=== PATIENT | female | born 1945 | race Caucasian/White ===

== ENCOUNTER → 2017-05-03 | Outpatient (CLI) | payer MEDICARE ==
--- NOTE | 2017-05-03 14:32 | MM ---
Reason for exam: follow-up at short interval from prior study. Last mammogram was performed 6 months ago. History: Patient is postmenopausal and is nulliparous. Benign cyst aspiration of the right breast, 1994. Physical Findings: Nurse did not find any significant physical abnormalities on exam. MG 3D Diag Mammo W/Cad LT CC and MLO view(s) were taken of the left breast. Prior study comparison: October 19, 2016, bilateral MG 3d diag mammo w/cad [facility]. August 19, 2008, bilateral digital screening mammogram. There are scattered fibroglandular densities. There is chronic nodularity in the left breast. While the 2-3 o'clock subareolar nodule appear more dense, it continues to measure 1cm and is circumscribed. Additional 6 month follow up recommended. These results were verbally communicated with the patient and result sheet given to the patient on 05/03/17. ASSESSMENT: Probably benign, BI-RAD 3 RECOMMENDATION: Follow-up diagnostic left breast mammogram in 6 months. Patient will be due for annual exam of the right breast at that time. Back on schedule for September 2017. RINA
== END | disposition home or self-care (01) ==
LOC: RADMAMWWP 12:50
PROVIDERS: ATTEND Internal Medicine
DX: R92.8 Other abnormal and inconclusive findings on diagnostic imaging of breast (principal)
CPT/HCPCS: G0206; G0279

== ENCOUNTER → 2021-12-30 | Outpatient (CLI) | payer MEDICARE ==
--- NOTE | 2021-12-30 12:55 | US ---
EXAMINATION TYPE: US kidneys/renal and bladder DATE OF EXAM: 12/30/2021 COMPARISON: NONE CLINICAL HISTORY: R31.9 HEMATURIA, UNSPECIFIED. microscopic hematuria, was on antibiotics, rt flank p ain EXAM MEASUREMENTS: Right Kidney: 9.9 x 4.4 x 4.7 cm Left Kidney: 10.9 x 5.4 x 5.4 cm Right Kidney: Hypoechoic area = 1.8 x 1.1cm Left Kidney: Hypoechoic area = 2.1 x 1.9cm Bladder: not fully distended, wnl No hydronephrosis or nephrolithiasis. Bladder limited by incomplete distention. IMPRESSION: 1. No hydronephrosis or nephrolithiasis. The hypoechoic nodules within the kidneys too small to lalo cterize but statistically most likely related to cysts.
== END | disposition home or self-care (01) ==
LOC: RADUSWWP 11:55
PROVIDERS: ATTEND Internal Medicine
DX: N28.1 Cyst of kidney, acquired (principal)
CPT/HCPCS: 76770

== ENCOUNTER 2022-10-10 13:28 | Emergency (ER) | payer MEDICARE ==
[2022-10-10 13:34] VITALS: TEMP 97.9
[2022-10-10 15:11] LABS: Basophils % (A) 0 %; Eosinophils # (A) 0.1 k/uL (0-0.7); Eosinophils % (A) 2 %; HCT 31.7 % (34.0-46.0); HGB 10.7 gm/dL (11.4-16.0); Lymphocytes # (A) 1.6 k/uL (1.0-4.8); Lymphocytes % (A) 25 %; MCH 30.6 pg (25.0-35.0); MCHC 33.8 g/dL (31.0-37.0); MCV 90.6 fL (80.0-100.0); Mean Platelet Volume 9.4; Monocytes # (A) 0.3 k/uL (0-1.0); Monocytes % (A) 5 %; Neutrophils # (A) 4.2 k/uL (1.3-7.7); Neutrophils % (A) 66 %; Platelet Count 204 k/uL (150-450); RDW 13.7 % (11.5-15.5); WBC 6.3 k/uL (3.8-10.6)
[2022-10-10 16:04] VITALS: RESP 16
[2022-10-10 16:46] LABS: Albumin 3.7 g/dL (3.5-5.0); Potassium 4.1 mmol/L (3.5-5.1); Total Bilirubin 0.3 mg/dL (0.2-1.3); Total Protein 6.3 g/dL (6.3-8.2)
--- NOTE | 2022-10-10 17:27 | ED ---
General Adult HPI - General Chief complaint: GI Bleed Stated complaint: GI Bleed Time Seen by Provider: 10/10/22 13:40 Source: patient Mode of arrival: wheelchair Limitations: no limitations - History of Present Illness Initial comments: This is a 77-year-old female that presents emergency department for a GI bleed. The patient stated that she had several episodes of bright red blood in the toilet bowl earlier yesterday and a minor episode today but did state that the stool has been returning to normal. The patient stated that she did not have any lightheadedness or dizziness but wanted to come to the emergency department for evaluation. The patient did state that she had previous hemorrhoids in the past however stated that she didn't have any acute pain in the rectal area. The patient remained stable and denied any other acute pain or complaints at this time. - Related Data Home Medications Medication Instructions Recorded Confirmed Aspirin EC [Ecotrin Low Dose] 81 mg PO DAILY@1200 10/10/22 10/10/22 Levothyroxine Sodium [Synthroid] 88 mcg PO AC-BRKFST 10/10/22 10/10/22 Linaclotide [Linzess] 145 mcg PO DAILY PRN 10/10/22 10/10/22 Multivitamins, Thera [Multivitamin 1 tab PO DAILY 10/10/22 10/10/22 (formulary)] lisinopriL [Zestril] 10 mg PO DAILY@1200 10/10/22 10/10/22 Allergies Allergy/AdvReac Type Severity Reaction Status Date / Time No Known Allergies Allergy Verified 10/10/22 15:31 Review of Systems ROS Statement: Those systems with pertinent positive or pertinent negative responses have been documented in the HPI. ROS Other: All systems not noted in ROS Statement are negative. Past Medical History Past Medical History: Hypertension History of Any Multi-Drug Resistant Organisms: None Reported Past Surgical History: Adenoidectomy, Cholecystectomy, Tonsillectomy, Tubal Ligation Additional Past Surgical History / Comment(s): thyroidectomy Past Psychological History: No Psychological Hx Reported Smoking Status: Former smoker Past Alcohol Use History: None Reported Past Drug Use History: None Reported General Exam Limitations: no limitations General appearance: alert, in no apparent distress Head exam: Present: atraumatic, normocephalic Eye exam: Present: normal appearance, PERRL Pupils: Present: normal accommodation ENT exam: Present: normal exam, normal oropharynx Neck exam: Present: normal inspection, full ROM Respiratory exam: Present: normal lung sounds bilaterally Cardiovascular Exam: Present: regular rate, normal rhythm, normal heart sounds GI/Abdominal exam: Present: soft, normal bowel sounds Rectal exam: Present: normal inspection, normal rectal tone, heme (+) stool Extremities exam: Present: normal inspection, full ROM Back exam: Present: normal inspection, full ROM Neurological exam: Present: alert, oriented X3, CN II-XII intact Psychiatric exam: Present: normal affect, normal mood Skin exam: Present: warm, dry Course Vital Signs 10/10/22 10/10/22 10/10/22 13:31 15:41 16:04 Temperature 97.9 F Pulse Rate 73 78 68 Respiratory 16 20 16 Rate Blood Pressure 124/80 142/71 134/68 O2 Sat by Pulse 95 96 98 Oximetry 10/10/22 17:45 Temperature Pulse Rate 78 Respiratory 16 Rate Blood Pressure 140/60 O2 Sat by Pulse 98 Oximetry Medical Decision Making - Medical Decision Making The patient was seen and evaluated emergency department. On evaluation, the patient was resting in bed without any acute distress. The patient did not complain of any pain and vital signs were stable on evaluation. The due to the nature the patient's complaints, laboratory workup was obtained and a rectal exam was performed. Laboratory workup was within normal limits and hemoglobin was stable. The rectal exam did not show any acute obvious blood but did have occult positive stool. The patient continued to remain stable with normal vital signs and on reevaluation, the patient was anxious and just wanted to leave the emergency department. The patient stated that she did not want to stay for an evaluation however was told that she remained stable and could be discharged [facility]. The patient was advised to return back to the emergency department if she any worsening symptoms including any lightheadedness, dizziness as well as any large rectal bleeding that was persistent. The patient was agreeable to this and all of her questions were answered. The patient was discharged home in stable condition. - Lab Data Result diagrams: 10/10/22 14:12 10/10/22 15:55 Lab Results 10/10/22 10/10/22 10/10/22 Range/Units 14:08 14:12 14:12 WBC 6.3 (3.8-10.6) k/uL RBC 3.50 L (3.80-5.40) m/uL Hgb 10.7 L (11.4-16.0) gm/dL Hct 31.7 L (34.0-46.0) % MCV 90.6 (80.0-100.0) fL MCH 30.6 (25.0-35.0) pg MCHC 33.8 (31.0-37.0) g/dL RDW 13.7 (11.5-15.5) % Plt Count 204 (150-450) k/uL MPV 9.4 Neutrophils % 66 % Lymphocytes % 25 % Monocytes % 5 % Eosinophils % 2 % Basophils % 0 % Neutrophils # 4.2 (1.3-7.7) k/uL Lymphocytes # 1.6 (1.0-4.8) k/uL Monocytes # 0.3 (0-1.0) k/uL Eosinophils # 0.1 (0-0.7) k/uL Basophils # 0.0 (0-0.2) k/uL Sodium (137-145) mmol/L Potassium (3.5-5.1) mmol/L Chloride (98-107) mmol/L Carbon Dioxide (22-30) mmol/L Anion Gap mmol/L BUN (7-17) mg/dL Creatinine (0.52-1.04) mg/dL Est GFR (CKD-EPI)AfAm (>60 ml/min/1.73 sqM) Est GFR (CKD-EPI)NonAf (>60 ml/min/1.73 sqM) Glucose (74-99) mg/dL Calcium (8.4-10.2) mg/dL Total Bilirubin (0.2-1.3) mg/dL AST (14-36) U/L ALT (4-34) U/L Alkaline Phosphatase (38-126) U/L Total Protein (6.3-8.2) g/dL Albumin (3.5-5.0) g/dL Stool Occult Blood Positive H (Negative) Blood Type Blood Type Confirm A Positive Blood Type Recheck Bld Type Recheck Status Antibody Screen Spec Expiration Date 10/10/22 10/10/22 Range/Units 14:12 15:55 WBC (3.8-10.6) k/uL RBC (3.80-5.40) m/uL Hgb (11.4-16.0) gm/dL Hct (34.0-46.0) % MCV (80.0-100.0) fL MCH (25.0-35.0) pg MCHC (31.0-37.0) g/dL RDW (11.5-15.5) % Plt Count (150-450) k/uL MPV Neutrophils % % Lymphocytes % % Monocytes % % Eosinophils % % Basophils % % Neutrophils # (1.3-7.7) k/uL Lymphocytes # (1.0-4.8) k/uL Monocytes # (0-1.0) k/uL Eosinophils # (0-0.7) k/uL Basophils # (0-0.2) k/uL Sodium 139 (137-145) mmol/L Potassium 4.1 (3.5-5.1) mmol/L Chloride 107 (98-107) mmol/L Carbon Dioxide 26 (22-30) mmol/L Anion Gap 6 mmol/L BUN 16 (7-17) mg/dL Creatinine 0.76 (0.52-1.04) mg/dL Est GFR (CKD-EPI)AfAm 87 (>60 ml/min/1.73 sqM) Est GFR (CKD-EPI)NonAf 75 (>60 ml/min/1.73 sqM) Glucose 103 H (74-99) mg/dL Calcium 9.0 (8.4-10.2) mg/dL Total Bilirubin 0.3 (0.2-1.3) mg/dL AST 19 (14-36) U/L ALT 18 (4-34) U/L Alkaline Phosphatase 116 (38-126) U/L Total Protein 6.3 (6.3-8.2) g/dL Albumin 3.7 (3.5-5.0) g/dL Stool Occult Blood (Negative) Blood Type A Positive Blood Type Confirm Blood Type Recheck No Previous Record Bld Type Recheck Status CABO Indicated Antibody Screen NEGATIVE Spec Expiration Date 10/13/20222311 Disposition Clinical Impression: GIB (gastrointestinal bleeding) Disposition: HOME SELF-CARE Condition: Stable Instructions (If sedation given, give patient instructions): Gastrointestinal Bleeding (ED) Is patient prescribed a controlled substance at d/c from ED?: No Referrals: Janki Simons MD [Primary Care Provider] - 1-2 days Radha Hodges MD [STAFF PHYSICIAN] - 1-2 days (Call for follow-up appointment) Time of Disposition: 17:00
[2022-10-10 17:46] VITALS: BP 140/60; PULSE 78
== END 2022-10-10 17:46 | disposition home or self-care (01) ==
LOC: EC 13:28
DX: K92.2 Gastrointestinal hemorrhage, unspecified (principal); I10 Essential (primary) hypertension; Z87.891 Personal history of nicotine dependence; Z79.82 Long term (current) use of aspirin; Z79.899 Other long term (current) drug therapy
CPT/HCPCS: 36415; 80053; 82272; 85025; 86850; 86900; 86901; 99285

== ENCOUNTER → 2022-11-03 | Outpatient (CLI) | payer MEDICARE ==
--- NOTE | 2022-11-05 16:10 | MM ---
Reason for Exam: Screening (asymptomatic). Last mammogram was performed 6 year(s) and 1 month(s) ago. Patient History: Menarche at age 10. Patient has no children. Postmenopausal. 1994, Benign Cyst Aspiration on the right side. Risk Values: Ana Maria 5 year model risk: 1.9%. NCI Lifetime model risk: 3.1%. Prior Study Comparison: 08/19/2008 Bilateral Screening Mammogram, [facility]. 10/19/2016 Bilateral Diagnostic Mammogram, [facility]. 10/19/2016 Left Diagnostic Ultrasound, [facility]. 05/03/2017 Left Diagnostic Mammogram, [facility]. Tissue Density: There are scattered fibroglandular densities. poor HISTORIAN....UNSURE IF ANY MAMMOGRAM ELSEWHERE SINCE 2017. Findings: Analyzed By CAD. Chronic nodularity on both sides. Some fluctuating nodularity in the medial subareolar left breast on the CC view. Likely underlying cyst. Short interval follow-up recommended to reassess. Microclip lateral anterior left breast from prior biopsy. Otherwise, no significant change. Overall Assessment: Probably benign, BI-RAD 3 Management: Diagnostic Mammogram of the left breast in 6 months. 1. Patient should continue monthly self breast exams. 2. A clinical breast exam by your physician is recommended on an annual basis. 3. This exam should not preclude additional follow-up of suspicious palpable abnormalities. Electronically signed and approved by: Stephenie Dorman M.D. Radiologist
== END | disposition home or self-care (01) ==
LOC: RADMAMWWP 11:25
PROVIDERS: ATTEND Internal Medicine
DX: Z12.31 Encounter for screening mammogram for malignant neoplasm of breast (principal); Z78.0 Asymptomatic menopausal state
CPT/HCPCS: 77063; 77067

== ENCOUNTER → 2023-11-17 | Outpatient (CLI) | payer MEDICARE ==
--- NOTE | 2023-11-17 13:32 | MM ---
Reason for Exam: Additional evaluation requested from prior study. Last screening mammogram was performed 12 month(s) ago. Patient History: Menarche at age 10. Patient has no children. Postmenopausal. 1994, Benign Cyst Aspiration on the right side. Risk Values: Ana Maria 5 year model risk: 1.8%. NCI Lifetime model risk: 2.8%. Prior Study Comparison: 10/19/2016 Bilateral Diagnostic Mammogram, [facility]. 05/03/2017 Left Diagnostic Mammogram, [facility]. 11/03/2022 Bilateral MG 3D screening mammo w/cad, [facility]. Tissue Density: There are scattered fibroglandular densities. Findings: Analyzed By CAD. Nodularity in the left breast remains unchanged. Lateral subareolar asymmetric density in the left breast contains a microclip related to prior biopsy. However, the area. Slightly more defined. Suspect technical differences. As the area was previously biopsied, precautionary 6 month follow-up is recommended. Otherwise, no significant change. Overall Assessment: Probably benign, BI-RAD 3 Management: Diagnostic Mammogram of the left breast in 6 months. Results were given to the patient verbally at the time of exam. Patient should continue monthly self-breast exams. A clinical breast exam by your physician is recommended on an annual basis. This exam should not preclude additional follow-up of suspicious palpable abnormalities. Note on Ana Maria scores and lifetime risk: 1. A Ana Maria score greater than 3% is considered moderate risk. If this is the case, consider specialist referral to assess eligibility for a risk reducing agent. 2. If overall lifetime risk for the development of breast cancer is 20% or higher, the patient may qualify for future screening with alternating mammogram and breast MRI. Electronically signed and approved by: Stephenie Dorman M.D. Radiologist
== END | disposition home or self-care (01) ==
LOC: RADMAMWWP 12:50
PROVIDERS: ATTEND Family Medicine
DX: R92.323 Mammographic fibroglandular density, bilateral breasts (principal); Z78.0 Asymptomatic menopausal state
CPT/HCPCS: 77066; G0279; 77062

== ENCOUNTER → 2023-12-19 | Outpatient (CLI) | payer MEDICARE ==
--- NOTE | 2023-12-19 23:23 | US ---
EXAMINATION TYPE: US kidneys/renal and bladder DATE OF EXAM: 12/19/2023 COMPARISON: CT 12/28/2022 US 12/30/2021 CLINICAL INDICATION: Female, 78 years old with history of R10.9 RIGHT FLANK PAIN; UNSPECIFIED ABDOMIN AL PAIN; UTI with bilateral flank pain x 5 years EXAM MEASUREMENTS: Right Kidney: 9.8 x 4.8 x 5.1 cm Left Kidney: 11.0 x 6.1 x 5.8 cm Post Void Residual Volume: NA mL Right Kidney: wnl Left Kidney: Cyst = 2.8 x 2.3 x 2.2 cm Bladder: Possible superior urinary bladder Diverticula = 2.5 x 1.6 x 2.7 cm Bilateral Jets seen: Yes Normal Post Void Residual: NA IMPRESSION: 1. Left renal cyst. 2. Urinary bladder diverticulum may be present superior to the urinary bladder
== END | disposition home or self-care (01) ==
LOC: RADUSWWP 15:51
PROVIDERS: ATTEND Family Medicine
DX: N28.1 Cyst of kidney, acquired (principal); N32.3 Diverticulum of bladder
CPT/HCPCS: 76770

== ENCOUNTER → 2024-05-21 | Outpatient (CLI) | payer MEDICARE ==
--- NOTE | 2024-05-21 13:21 | MM ---
Reason for Exam: Follow-up at short interval from prior study. Last screening mammogram was performed 6 month(s) ago. Patient History: Menarche at age 10. Patient has no children. Postmenopausal. 1994, Benign Cyst Aspiration on the right side. Risk Values: Ana Maria 5 year model risk: 1.8%. NCI Lifetime model risk: 2.8%. Prior Study Comparison: 05/03/2017 Left Diagnostic Mammogram, [facility]. 11/03/2022 Bilateral MG 3D screening mammo w/cad, [facility]. 11/17/2023 Bilateral MG 3D diag mammo w/cad [facility], [facility]. Tissue Density: Left: There are scattered areas of fibroglandular density. Findings: Analyzed By CAD. There is a new 7 to 8 mm spiculated nodule upper outer quadrant left breast 7.4 cm from the nipple. Previously sampled mass left breast is stable. No suspicious microcalcifications. Overall Assessment: Incomplete: need additional imaging evaluation, BI-RAD 0 Management: Diagnostic Breast Ultrasound of the left breast. . Results were given to the patient verbally at the time of exam. Patient should continue monthly self-breast exams. A clinical breast exam by your physician is recommended on an annual basis. This exam should not preclude additional follow-up of suspicious palpable abnormalities. Note on Ana Maria scores and lifetime risk: 1. A Ana Maria score greater than 3% is considered moderate risk. If this is the case, consider specialist referral to assess eligibility for a risk reducing agent. 2. If overall lifetime risk for the development of breast cancer is 20% or higher, the patient may qualify for future screening with alternating mammogram and breast MRI. Electronically signed and approved by: Héctor Soto M.D. Radiologis
--- NOTE | 2024-05-21 13:37 | USB ---
Reason for Exam: Additional evaluation requested from prior study. Patient History: Menarche at age 10. Patient has no children. Postmenopausal. 1994, Benign Cyst Aspiration on the right side. Risk Values: Ana Maria 5 year model risk: 1.8%. NCI Lifetime model risk: 2.8%. Technique: Method: Targeted. Doppler: Color. Patient Position: Supine. Prior Study Comparison: 05/03/2017 Left Diagnostic Mammogram, [facility]. 11/03/2022 Bilateral MG 3D screening mammo w/cad, [facility]. 11/17/2023 Bilateral MG 3D diag mammo w/cad [facility], [facility]. Findings: The upper outer quadrant of the left breast, the axilla of the left breast and the retroareolar of the left breast were scanned. There is a small spiculated mass noted at the left 1:00 position 7 cm from the nipple measuring 9 x 7 mm sonographically. There is also a prominent lymph node within the left axilla measuring 2.1 x 1.8 cm with cortical thickening of 5 mm. Biopsy of both sites is recommended sonographically. Overall Assessment: Highly suggestive of malignancy, BI-RAD 5 Management: Ultrasound Core Biopsy of the left breast. A clinical breast exam by your physician is recommended on an annual basis and results should be correlated with mammographic findings. This exam should not preclude additional follow-up of suspicious palpable abnormalities. Results were given to the patient verbally at the time of exam. Electronically signed and approved by: Héctor Soto M.D. Radiologis
== END | disposition home or self-care (01) ==
LOC: RADMAMWWP 12:45
PROVIDERS: ATTEND Family Medicine
DX: R92.322 Mammographic fibroglandular density, left breast (principal); R92.8 Other abnormal and inconclusive findings on diagnostic imaging of breast; Z78.0 Asymptomatic menopausal state
CPT/HCPCS: 77065; 76642; G0279; 77061

== ENCOUNTER → 2024-06-06 | Day surgery (SDC) | payer MEDICARE ==
--- NOTE | 2024-07-03 11:39 | MM ---
Reason for Exam: Post Procedure Mammogram. Last screening mammogram was performed 7 month(s) ago. Patient History: Menarche at age 10. Patient has no children. Postmenopausal. 1994, Benign Cyst Aspiration on the right side. Risk Values: Ana Maria 5 year model risk: 1.8%. NCI Lifetime model risk: 2.6%. Prior Study Comparison: 11/03/2022 Bilateral MG 3D screening mammo w/cad, [facility]. 11/17/2023 Bilateral MG 3D diag mammo w/cad [facility], [facility]. 05/21/2024 Left US breast limited LT, [facility]. 05/21/2024 Left MG 3D diag mammo w/cad LT, [facility]. Tissue Density: Left: There are scattered areas of fibroglandular density. Pathology Description: Location: 1 o'clock. Marker Left Behind. Needle Type: Mammotome Cores: 6 Gauge: 13 The procedure of ultrasound guided core biopsy was explained to the patient. Benefits, alternatives, and risks were discussed. An informed consent was then obtained. A timeout was performed. The patient was placed in supine positioning for imaging and for the procedure. The overlying skin was prepped and draped in usual sterile fashion. Lidocaine was used as anesthetic into the skin and subcutaneous tissue up to area of concern in the left breast. A small skin roverto was made with surgical scalpel. Under ultrasound guidance, a 12-gauge vacuum assisted biopsy gun device was used to obtain 6 core samples. A biopsy clip was left in lesion. Hydromark wing clip core marker was placed. No suspicious axillary lymphadenopathy with thickened cortex is identified during this exam. Axillary biopsy was not performed. The patient tolerated the procedure well without any immediate complication. The patient was kept in the radiology department for short stay after the procedure and then discharged home in stable condition. Postprocedure mammogram: The patient was transferred to mammography for physician ordered post procedure mammogram for clip placement verification. Mammography films are unavailable during PACS downtime. Impression: Successful ultrasound guided core biopsy of area of concern in the left breast, full pathology results to follow. Recommendations: 1. Recommendations are pending pathology results. Pathology Results: Result: Malignant, Invasive ductal carcinoma. Pathology and radiology were reviewed. Findings are concordant. LEFT BREAST, 1:00, ULTRASOUND GUIDED CORE BIOPSY: Invasive ductal carcinoma, preliminarily Grade 2, with focal high grade DCIS and microcalcification (see Surgical Pathology Cancer Case Summary and comment). Overall Assessment: Malignant Assessment: MG diagnostic mammo LT wo CAD. - Left: Known biopsy proven malignancy, BI-RAD 6. Management: Surgical Consultation of the left breast. Electronically signed and approved by: Omid Kruger D.O. Radiologis
== END ==
LOC: RADUSWWP 12:00
PROVIDERS: ATTEND Family Medicine
DX: R92.8 Other abnormal and inconclusive findings on diagnostic imaging of breast (principal)
CPT/HCPCS: 77065

== ENCOUNTER 2024-07-29 06:43 | Day surgery (SDC) | payer MEDICARE ==
[2024-07-29] MEDS ORDERED: LIDOCAINE 1% (10MG/ML) FOR IV START INTRADERMA PRN (07:15)
[2024-07-29] MEDS ORDERED: HYDROmorphone 0.5 MG/0.5 ML SYRINGE IVP PRN (07:15)
[2024-07-29] MEDS ORDERED: LACTATED RINGERS 1,000 ML IV SCH (07:15)
[2024-07-29] MEDS ORDERED: ONDANSETRON 4 MG/2 ML VIAL IVP PRN (07:15)
[2024-07-29 07:36] LABS: Glucose,Whole Blood 102 mg/dL (70-110)
[2024-07-29] MEDS: ACETAMINOPHEN TAB 500 MG TAB PO PRN (07:48)
[2024-07-29] MEDS: ALPRAZolam 0.25 MG TAB PO STA (07:49)
--- NOTE | 2024-07-29 09:02 | P.HPADDEND ---
H&P Addendum H&P Addendum Date: 07/29/24 Patient comes in today for left breast lumpectomy. I spoke with radiology this morning regarding her case. I asked him to review the previous axillary ultrasound. On the patient's first ultrasound there was a lymph node there to that appeared slightly suspicious with a thickened cortex. When the patient came in for her ultrasound core biopsy of the left breast lesion and the left axillary lymph node the lymph node was thought to be benign in appearance and no biopsy took place. When I spoke to the radiologist on duty today and had him look at the films he thought he probably would still have recommended axillary lymph node sampling. I discussed this with the patient at length. Patient stat es she has had some intermittent pain in the left axilla dating back 10 years or more. Initially she was requesting that we just remove this lymph node. I examined the patient down in the ultrasound suite. The location for her pain does not totally match with the mildly enlarged lymph node. We do not have radiotracer to proceed with sentinel lymph node biopsy in house at this time. I do think the best option is to do an ultrasound core biopsy of this mildly suspicious lymph node. If this is negative would not recommend any further axillary intervention unless patient has significant ongoing discomfort there. Patient is agreeable with this plan. Will proceed with left breast wire localization lumpectomy when the patient comes back up from radiology.
--- NOTE | 2024-07-29 09:03 | P.NAPBC ---
NAPBC Queries - NAPBC Queries Was patient's case review presented at [facility] tumor board? If no, comment.: No Was patient's pathology reviewed at [facility]? If no, comment.: Yes Was breast conservation surgery offered? If no, comment.: Yes Was sentinel node biopsy offered? If no, comment.: Yes Was diagnosis confirmed by percutaneous core biopsy? If no, comment.: Yes Is patient mastectomy patient?: No Was a preop referral to reconstructive surgeon offered?: Yes Clinical Stage: 1
[2024-07-29] MEDS: LIDOCAINE 1% INJ 10MG/ML (20 ML MDV) SQ ONE (09:12)
[2024-07-29] MEDS: ONDANSETRON 4 MG/2 ML VIAL IVP ONE (09:57)
[2024-07-29] MEDS: DEXAMETHASONE SOD PHOSPHATE 4 MG/ML 1 ML VIAL IV ONE (09:57)
[2024-07-29] MEDS: HEPARIN SODIUM,PORCINE 5,000 UNIT/ML 1 ML VIAL SQ PRN (10:00)
[2024-07-29] MEDS: IV FLUID CONTINUATION 1,000 ML IV ONE (10:06)
[2024-07-29] MEDS ORDERED: ePHEDrine 50 MG/ML 1 ML VIAL ONE (10:07)
[2024-07-29] MEDS ORDERED: PROPOFOL 10 MG/ML 20 ML VIAL IV ONE (10:07)
[2024-07-29] MEDS ORDERED: fentaNYL (PF) 50 MCG/ML 2 ML AMP ONE (10:07)
[2024-07-29] MEDS ORDERED: LIDOCAINE 1% INJ 10MG/ML (20 ML MDV) ONE (10:07)
[2024-07-29] MEDS: BUPIVACAINE (PF) 0.25% 30 ML VIAL SQ ONE ×2 (10:40)
[2024-07-29 11:14] VITALS: TEMP 97.4
[2024-07-29] MEDS ORDERED: MELOXICAM 7.5 MG TAB PO SCH (11:15)
--- NOTE | 2024-07-29 11:20 | P.OP ---
Date of Procedure: 07/29/24 Procedure(s) Performed: PREOPERATIVE DIAGNOSIS: Left breast cancer POSTOPERATIVE DIAGNOSIS: Same PROCEDURE: Left breast wire localization lumpectomy SURGEON: Smita EBL: 10 cc ANESTHESIA: General COMPLICATIONS: None OPERATIVE PROCEDURE: Patient was placed on the operating room table in the supine position. Patient was placed under general anesthesia. The breast was prepped and draped in usual sterile fashion. The wire entrance site was then addressed. This was present at the 2-3:00 location. A curvilinear incision was made adjacent to the wire entrance site. I followed the wire down into the breast tissue. An adequate lumpectomy specimen then took place around the wire. Margins of 1.5-2 cm worth attempted to be achieved. The specimen was then painted the appropriate 6 colors. Clips were used to identify the lumpectomy cavity. The clip was confirmed to be within the lumpectomy specimen by radiology. The subcutaneous tissues were closed using 3-0 Vicryl sutures. The skin was closed using a running 4-0 Monocryl stitch. Skin glue was then applied. DISPOSITION: Stable to recovery room
[2024-07-29] MEDS ORDERED: ACETAMINOPHEN TAB 325 MG TAB PO SCH (12:00)
--- NOTE | 2024-07-29 12:34 | USB ---
EXAMINATION TYPE: US breast localization LT DATE OF EXAM: 07/29/2024 9:42 AM COMPARISON: NONE HISTORY: Invasive ductal carcinoma Informed consent was obtained and all the patient's questions were answered. The lesion in question was localized sonographically. The standard sterile technique was utilized, as well as appropriate lo liang anesthesia with 1% Lidocaine. Localization needle followed by placement of a guidewire was perfor med under sonographic guidance. Verification images demonstrate appropriate deployment of the guidewi re. The patient tolerated the procedure well and left the department in stable condition. Specimen radiograph demonstrates the lesion, clip and guidewire in question to reside within the spec imen. IMPRESSION: Successful needle localization and open biopsy left breast with pathology results pending . [facility], , 07/29/2024 12:31 PM
[2024-07-29 12:51] VITALS: BP 155/81; PULSE 75; RESP 18
[2024-07-29] MEDS ORDERED: traMADol 50 MG TAB PO SCH (13:00)
--- NOTE | 2024-08-05 09:21 | MM ---
Pathology Description: Location: 1 o'clock. Needle Type: 5 cm [place] Informed consent was obtained and all the patient's questions were answered. The lesion in question was localized sonographically. The standard sterile technique was utilized, as well as appropriate local anesthesia with 1% Lidocaine. Localization needle followed by placement of a guidewire was performed under sonographic guidance. Verification images demonstrate appropriate deployment of the guidewire. The patient tolerated the procedure well and left the department in stable condition. Specimen radiograph demonstrates the lesion, clip and guidewire in question to reside within the specimen. IMPRESSION: Successful needle localization and open biopsy left breast with pathology results pending. Pathology Results: Result: Malignant, Invasive ductal carcinoma. Pathology and radiology were reviewed. Findings are concordant. LEFT BREAST, LUMPECTOMY: Invasive moderately differentiated ductal carcinoma (Grade 2), margins negative for malignancy. See Surgical Pathology Cancer Case Summary. Overall Assessment: Malignant Management: Surgical Consultation of the left breast. Electronically signed and approved by: Héctor Soto M.D. Radiologis
--- NOTE | 2024-08-05 09:23 | MM ---
Reason for Exam: Post Procedure Mammogram. Last screening mammogram was performed 9 month(s) ago. Patient History: Menarche at age 10. Patient has no children. Postmenopausal. Breast cancer, left, age 79. 07/29/2024, Lumpectomy on the Left side. 06/06/2024, Malignant US biopsy breast VAD LT on the left side. 1994, Benign Cyst Aspiration on the right side. Prior Study Comparison: 11/17/2023 Bilateral MG 3D diag mammo w/cad YUMIKO, [facility]. 05/21/2024 Left MG 3D diag mammo w/cad LT, [facility]. 06/06/2024 Left MG diagnostic mammo LT wo CAD., [facility]. Tissue Density: Left: There are scattered areas of fibroglandular density. Pathology Description: Location: axilla. Marker Left Behind. Cores: 2 Gauge: 12 The procedure of ultrasound guided core biopsy was explained to the patient. Benefits, alternatives, and risks were discussed. An informed consent was then obtained. The patient was placed in supine positioning for imaging and for the procedure. The overlying skin was prepped and draped in usual sterile fashion. Lidocaine buffered with bicarbonate was used as anesthetic into the skin and subcutaneous tissue up to the lymph node within the left axilla. = Under ultrasound guidance, a 12-gauge vacuum assisted biopsy gun device was used to obtain 2 core samples. Following this, a biopsy clip was left in lymph node. The patient tolerated the procedure well without any immediate complication. Postprocedure mammogram: The patient was transferred to mammography for physician ordered post procedure mammogram for clip placement verification. Impression: Successful, uncomplicated ultrasound guided core biopsy of the left axillary lymph node full pathology results to follow. [facility], , 07/29/2024 12:34 PM. Pathology Results: Result: Benign, Fibroadipose tissue. Pathology and radiology were reviewed. Findings are concordant. LEFT BREAST AXILLARY TAIL, ULTRASOUND GUIDED CORE BIOPSY: Benign fibroadipose tissue with reactive lymph node, negative for metastatic carcinoma to terrance tissue, see note. Notes The patient's history of a recent diagnosis of left breast 1:00 invasive ductal carcinoma on biopsy is noted. See prior left breast 1:00 biopsy case ([id number]) for full prior case details. NILSA and CK7 stains are both performed with appropriate controls on the tissue block in order to confirm the benign diagnosis. Both CK7 and NILSA stains are negative for metastatic carcinoma within terrance tissue. Overall Assessment: Benign Assessment: MG diagnostic mammo LT wo CAD. - Left: Benign, BI-RAD 2. Management: Surgical Consultation of the left breast. Electronically signed and approved by: Héctor Soto M.D. Radiologis
== END 2024-07-29 12:55 | disposition home or self-care (01) ==
LOC: OR 06:43
PROVIDERS: ATTEND Surgery
DX: C50.911 Malignant neoplasm of unspecified site of right female breast
CPT/HCPCS: 76098; 77065; 88307

== ENCOUNTER → 2024-08-05 | Day surgery (SDC) | payer MEDICARE ==
--- NOTE | 2024-08-05 09:39 | USB ---
EXAM: US biopsy breast VAD LT DATE OF EXAM: 07/29/2024 COMPARISON: DESCRIPTION: The procedure of ultrasound guided core biopsy was explained to the patient. Benefits, alternatives, and risks were discussed. An informed consent was then obtained. The patient was placed in supine positioning for imaging and for the procedure. The overlying skin was prepped and draped in usual sterile fashion. Lidocaine buffered with bicarbonate was used as anesthetic into the skin and subcutaneous tissue up to the lymph node within the left axilla. = Under ultrasound guidance, a 12-gauge vacuum assisted biopsy gun device was used to obtain 2 core samples. Following this, a biopsy clip was left in lymph node. The patient tolerated the procedure well without any immediate complication. Postprocedure mammogram: The patient was transferred to mammography for physician ordered post procedure mammogram for clip placement verification. Impression: Successful, uncomplicated ultrasound guided core biopsy of the left axillary lymph node full pathology results to follow. Pathology Results: Benign Pathology and radiology were reviewed. Findings are concordant. LEFT BREAST AXILLARY TAIL, ULTRASOUND GUIDED CORE BIOPSY: Benign fibroadipose tissue with reactive lymph node, negative for metastatic carcinoma to terrance tissue, see note. Notes The patient's history of a recent diagnosis of left breast 1:00 invasive ductal carcinoma on biopsy is noted. See prior left breast 1:00 biopsy case ([id number]) for full prior case details. NISLA and CK7 stains are both performed with appropriate controls on the tissue block in order to confirm the benign diagnosis. Both CK7 and NILSA stains are negative for metastatic carcinoma within terrance tissue. Recommendation Surgical consult of the left breast. RINA
== END ==
LOC: RADUSWWP 09:30
PROVIDERS: ATTEND Surgery
DX: R92.8 Other abnormal and inconclusive findings on diagnostic imaging of breast (principal); R59.9 Enlarged lymph nodes, unspecified
CPT/HCPCS: 88305; 88342; 88341; 19083; A4648

== ENCOUNTER → 2024-08-06 | Outpatient (CLI) | payer MEDICARE ==
--- NOTE | 2024-08-07 08:13 | BD ---
EXAMINATION TYPE: Axial Bone Density DATE OF EXAM: 08/06/2024 CLINICAL HISTORY: 79 years old Female. ICD-10 CODE: M81.0 AGE-RELATED OSTEOPOROSIS W/O CURRENT PATHO LOGY Height: 62 Weight: 220 FRAX RISK QUESTIONS: Family History (Parent hip fracture): no History of Fracture in Adulthood: no Secondary Osteoporosis: no RISK FACTORS HISTORY OF: Surgery to Spine/Hip(right/left)/Wrist (right/left): no MEDICATIONS: Thyroid Medications: yes Which medication: Synthroid How Lon+ years Osteoporosis Medications: no EXAM MEASUREMENTS: Bone mineral densitometry was performed using the [employer] System. Bone mineral density as measured about the Lumbar spine is: ----- L1-L4(G/cm2): 1.195 T Score Values are as follows: ----- L1: -0.6 ----- L2: -0.4 ----- L3: 0.3 ----- L4: 0.8 ----- L1-L4: 0.1 Z Score Values are as follows: ----- L1: 0.1 ----- L2: 0.3 ----- L3: 1.0 ----- L4: 1.5 ----- L1-L4: 0.8 Bone mineral density baseline Bone mineral density about the R hip (g/cm2): 0.758 Bone mineral density about the L hip (g/cm2): 0.753 T Score values are as follows: -----R Neck: -1.1 -----L Neck: -2.6 -----R Total: -2.0 -----L Total: -2.0 Z Score values are as follows: -----R Neck: 0.3 -----L Neck: -1.2 -----R Total: -0.7 -----L Total: -0.8 Bone mineral density baseline FRAX%s: The graph provided illustrates a 18.1% chance for a major osteoporotic fx and a 6.3% chance f or the hips probability for fx in 10 years time. IMPRESSION: Osteoporosis (T Score less than -2.5). There is increased fracture risk and therapy is usually indicated based on age. Re-Screen 1-2 years. NOTE: T-SCORE=SD OF THE YOUNG ADULT MEAN. [facility], , 08/07/2024 8:11 AM
== END | disposition home or self-care (01) ==
LOC: RADBDWWP 11:21
PROVIDERS: ATTEND Internal Medicine Hematology & Oncology
DX: M81.0 Age-related osteoporosis without current pathological fracture (principal)
CPT/HCPCS: 77080

== ENCOUNTER 2024-09-17 10:36 | Emergency (ER) | payer MEDICARE ==
[2024-09-17 10:45] VITALS: TEMP 97.4
--- NOTE | 2024-09-17 11:09 | ED ---
GI Bleed HPI - General Chief complaint: GI Bleed Stated complaint: blood in stool Time Seen by Provider: 09/17/24 10:46 Source: patient, RN notes reviewed Mode of arrival: ambulatory Limitations: no limitations - History of Present Illness Initial comments: This is an 79-year-old female presenting with rectal bleeding starting last night. Patient endorses lightheadedness with transient syncope without trauma or significant loss of consciousness. Patient endorses black diarrhea this morning with ongoing lightheadedness. Patient also mentions some right side back pain. Patient endorses history of bright red GI blood about 3 to 6 months ago. Patient states she was seen in [place] and diagnosed with a bleeding polyp. Patient endorses history of colonoscopy but is unsure of last. Patient denies fever, chills, chest pain, dyspnea, abdominal pain, nausea, vomiting. MD complaint: melena Onset/Timin -: days(s) Severity scale (1-10): 0 Quality: painless Context: history of GI bleed, near syncope Treatments Prior to Arrival: none - Related Data Home Medications Medication Instructions Recorded Confirmed Levothyroxine Sodium [Synthroid] 88 mcg PO AC-BRKFST 10/10/22 09/17/24 lisinopriL [Zestril] 10 mg PO HS 10/10/22 09/17/24 Latanoprost [Latanoprost 0.005%] 1 drop BOTH EYES HS 09/17/24 09/17/24 Vit C/E/Zn/Coppr/Lutein/Zeaxan 1 cap PO HS 09/17/24 09/17/24 [Preservision Areds 2 Softgel] Previous Rx's Medication Instructions Recorded Omeprazole [PriLOSEC] 40 mg PO DAILY #21 cap 09/17/24 Sucralfate [Carafate] 1 gm PO QID #100 tablet 09/17/24 Allergies Allergy/AdvReac Type Severity Reaction Status Date / Time No Known Allergies Allergy Verified 09/17/24 13:11 Review of Systems ROS Statement: Those systems with pertinent positive or pertinent negative responses have been documented in the HPI. ROS Other: All systems not noted in ROS Statement are negative. Past Medical History Past Medical History: Cancer Additional Past Medical History / Comment(s): Chronic pain in back, GI bleeding History of Any Multi-Drug Resistant Organisms: None Reported Past Surgical History: Adenoidectomy, Cholecystectomy, Tonsillectomy, Tubal Ligation Additional Past Surgical History / Comment(s): thyroidectomy Past Anesthesia/Blood Transfusion Reactions: No Reported Reaction Past Psychological History: No Psychological Hx Reported Smoking Status: Former smoker Past Alcohol Use History: None Reported Past Drug Use History: None Reported General Exam Limitations: no limitations General appearance: alert, in no apparent distress Head exam: Present: atraumatic, normocephalic, normal inspection Eye exam: Present: normal appearance, PERRL, EOMI. Absent: scleral icterus, conjunctival injection, periorbital swelling ENT exam: Present: normal exam, mucous membranes moist Neck exam: Present: normal inspection. Absent: tenderness, meningismus, lymphad enopathy Respiratory exam: Present: normal lung sounds bilaterally. Absent: respiratory distress, wheezes, rales, rhonchi, stridor Cardiovascular Exam: Present: regular rate, normal rhythm, normal heart sounds. Absent: systolic murmur, diastolic murmur, rubs, gallop, clicks GI/Abdominal exam: Present: soft, tenderness (Right upper quadrant tenderness without guarding. Negative Kwan's sign), normal bowel sounds. Absent: distended, guarding, rebound, rigid Rectal exam: Present: heme (+) stool, black stool, hemorrhoids (External. Flesh- colored, negative erythema or thrombosis) Extremities exam: Present: normal inspection, full ROM, normal capillary refill. Absent: tenderness, pedal edema, joint swelling, calf tenderness Back exam: Present: normal inspection. Absent: tenderness, CVA tenderness (R), CVA tenderness (L), paraspinal tenderness, vertebral tenderness Neurological exam: Present: alert, oriented X3, CN II-XII intact Psychiatric exam: Present: normal affect, normal mood Skin exam: Present: warm, dry, intact, normal color. Absent: rash Course Vital Signs 09/17/24 09/17/24 09/17/24 10:41 13:00 15:12 Temperature 97.4 F L Pulse Rate 89 86 102 H Respiratory 20 16 18 Rate Blood Pressure 90/53 127/77 109/56 O2 Sat by Pulse 98 97 96 Oximetry Medical Decision Making - Medical Decision Making Was pt. sent in by a medical professional or institution (, PA, [employer], urgent care, hospital, or shelter...) When possible be specific @ -No Did you speak to anyone other than the patient for history (EMS, parent, family, police, friend...)? What history was obtained from this source @ -No Did you review nursing and triage notes (agree or disagree)? Why? @ -I reviewed and agree with nursing and triage notes Were old charts reviewed (outside hosp., previous admission, EMS record, old EKG, old radiological studies, urgent care reports/EKG's, shelter records)? Report findings @ -No old charts were reviewed Differential Diagnosis (chest pain, altered mental status, abdominal pain women, abdominal pain men, vaginal bleeding, weakness, fever, dyspnea, syncope, headache, dizziness, GI bleed, back pain, seizure, CVA, palpatations, mental health, musculoskeletal)? @ -Differential Abdominal Pain Women: Appendicitis, Cholecystitis, diverticulosis, ischemic bowel, pancreatitis, hepatitis, UTI, gastroenteritis, AAA, incarcerated hernia, bowel obstruction, constipation, inflammatory bowel, hepatitis, peptic ulcer disease, splenic infarction, perforated viscus, vulvitis, ovarian torsion, PID, kidney stone, placenta abruption, this is not meant to be an all-inclusive list EKG interpreted by me (3pts min.). @ -Sinus rhythm with first-degree AV block. No ST changes or T wave inversion. Ventricular rate 80 bpm, KEVIN 235 ms, QRS duration 93 ms, QTc 398 ms. X-rays interpreted by me (1pt min.). @ -None done CT interpreted by me (1pt min.). @ -Abdominal/pelvic CT shows no acute process with only colonic and duodenal diverticula noted. U/S interpreted by me (1pt. min.). @ -None done What testing was considered but not performed or refused? (CT, X-rays, U/S, labs)? Why? @ -None What meds were considered but not given or refused? Why? @ -None Did you discuss the management of the patient with other professionals (professionals i.e. , PA, [employer], lab, RT, psych nurse, neonatal social worker, warehouse manager, teacher, safety officer, family caseworker)? Give summary @ -Spoke to Dr. Simmons, as there is no GI on-call, advised patient to follow-up with gastroenterology and prescribe patient 40 mg of omeprazole QD as well as Carafate. Was smoking cessation discussed for >3mins.? @ -No Was critical care preformed (if so, how long)? @ -No Were there social determinants of health that impacted care today? How? (Homelessness, low income, unemployed, alcoholism, drug addiction, transportat ion, low edu. Level, literacy, decrease access to med. care, fci, rehab)? @ -No Was there de-escalation of care discussed even if they declined (Discuss DNR or withdrawal of care, Hospice)? DNR status @ -No What co-morbidities impacted this encounter? (DM, HTN, Smoking, COPD, CAD, Cancer, CVA, ARF, Chemo, Hep., AIDS, mental health diagnosis, sleep apnea, morbid obesity)? @ -GERD Was patient admitted / discharged? Hospital course, mention meds given and route, prescriptions, significant lab abnormalities, going to OR and other pertinent info. @ -Lab work shows leukocytosis with left shift. Elevated BUN and lactic acid (3.7). Stool occult blood was positive, troponin negative. Repeat lactic acid 3 hours later was 1.8. Abdominal/pelvic CT shows no acute process with only colonic and duodenal diverticula noted. Patient given IV normal saline for lactic acidosis. Spoke to Dr. Simmons, as there is no GI on-call, advised patient to follow-up with gastroenterology in the next 24 to 48 hours and to prescribe patient 40 mg of omeprazole QD as well as Carafate. Both of these medications sent to patient's pharmacy. Undiagnosed new problem with uncertain prognosis? @ -Melena Drug Therapy requiring intensive monitoring for toxicity (Heparin, Nitro, Insulin, Cardizem)? @ -No Were any procedures done? @ -No Diagnosis/symptom? @ -Melena Acute, or Chronic, or Acute on Chronic? @ -Acute Uncomplicated (without systemic symptoms) or Complicated (systemic symptoms)? @ -Complicated Side effects of treatment? @ -No Exacerbation, Progression, or Severe Exacerbation? @ -No Poses a threat to life or bodily function? How? (Chest pain, USA, PR, pneumonia, PE, COPD, DKA, ARF, appy, cholecystitis, CVA, Diverticulitis, Homicidal, Suicidal, threat to staff... and all critical care pts) @ -No - Lab Data Result diagrams: 09/17/24 11:14 09/17/24 11:14 Lab Results 09/17/24 09/17/24 09/17/24 Range/Units 11:14 11:14 11:14 WBC 16.2 H (3.8-10.6) k/uL RBC 4.31 (3.80-5.40) m/uL Hgb 13.3 (11.4-16.0) gm/dL Hct 41.1 (34.0-46.0) % MCV 95.4 (80.0-100.0) fL MCH 30.9 (25.0-35.0) pg MCHC 32.4 (31.0-37.0) g/dL RDW 13.5 (11.5-15.5) % Plt Count 268 (150-450) k/uL MPV 8.0 Neutrophils % 90 % Lymphocytes % 7 % Monocytes % 3 % Eosinophils % 1 % Basophils % 0 % Neutrophils # 14.6 H (1.3-7.7) k/uL Lymphocytes # 1.1 (1.0-4.8) k/uL Monocytes # 0.4 (0-1.0) k/uL Eosinophils # 0.1 (0-0.7) k/uL Basophils # 0.0 (0-0.2) k/uL PT 9.7 L (10.0-12.5) sec INR 0.9 (<1.2) APTT 19.0 L (22.0-30.0) sec Sodium (137-145) mmol/L Potassium (3.5-5.1) mmol/L Chloride (98-107) mmol/L Carbon Dioxide (22-30) mmol/L Anion Gap mmol/L BUN (7-17) mg/dL Creatinine (0.52-1.04) mg/dL Est GFR (CKD-EPI)AfAm (>60 ml/min/1.73 sqM) Est GFR (CKD-EPI)NonAf (>60 ml/min/1.73 sqM) Glucose (74-99) mg/dL Lactic Ac Sepsis Rflx Plasma Lactic Acid Luan (0.7-2.0) mmol/L Calcium (8.4-10.2) mg/dL Magnesium (1.6-2.3) mg/dL Total Bilirubin (0.2-1.3) mg/dL AST (14-36) U/L ALT (4-34) U/L Alkaline Phosphatase (38-126) U/L Troponin I (0.000-0.034) ng/mL Total Protein (6.3-8.2) g/dL Albumin (3.5-5.0) g/dL Lipase (23-300) U/L Stool Occult Blood Positive H (Negative) Blood Type Blood Type Recheck Bld Type Recheck Status Antibody Screen Spec Expiration Date 09/17/24 09/17/24 09/17/24 Range/Units 11:14 11:14 11:14 WBC (3.8-10.6) k/uL RBC (3.80-5.40) m/uL Hgb (11.4-16.0) gm/dL Hct (34.0-46.0) % MCV (80.0-100.0) fL MCH (25.0-35.0) pg MCHC (31.0-37.0) g/dL RDW (11.5-15.5) % Plt Count (150-450) k/uL MPV Neutrophils % % Lymphocytes % % Monocytes % % Eosinophils % % Basophils % % Neutrophils # (1.3-7.7) k/uL Lymphocytes # (1.0-4.8) k/uL Monocytes # (0-1.0) k/uL Eosinophils # (0-0.7) k/uL Basophils # (0-0.2) k/uL PT (10.0-12.5) sec INR (<1.2) APTT (22.0-30.0) sec Sodium 137 (137-145) mmol/L Potassium 4.7 (3.5-5.1) mmol/L Chloride 108 H (98-107) mmol/L Carbon Dioxide 18 L (22-30) mmol/L Anion Gap 11 mmol/L BUN 52 H (7-17) mg/dL Creatinine 1.02 (0.52-1.04) mg/dL Est GFR (CKD-EPI)AfAm 60 (>60 ml/min/1.73 sqM) Est GFR (CKD-EPI)NonAf 52 (>60 ml/min/1.73 sqM) Glucose 130 H (74-99) mg/dL Lactic Ac Sepsis Rflx Plasma Lactic Acid Luan 3.7 H* (0.7-2.0) mmol/L Calcium 8.7 (8.4-10.2) mg/dL Magnesium 1.9 (1.6-2.3) mg/dL Total Bilirubin 0.5 (0.2-1.3) mg/dL AST 16 (14-36) U/L ALT 14 (4-34) U/L Alkaline Phosphatase 102 (38-126) U/L Troponin I <0.012 (0.000-0.034) ng/mL Total Protein 6.4 (6.3-8.2) g/dL Albumin 3.8 (3.5-5.0) g/dL Lipase 58 (23-300) U/L Stool Occult Blood (Negative) Blood Type Blood Type Recheck Bld Type Recheck Status Antibody Screen Spec Expiration Date 09/17/24 09/17/24 09/17/24 Range/Units 11:14 11:41 14:18 WBC (3.8-10.6) k/uL RBC (3.80-5.40) m/uL Hgb (11.4-16.0) gm/dL Hct (34.0-46.0) % MCV (80.0-100.0) fL MCH (25.0-35.0) pg MCHC (31.0-37.0) g/dL RDW (11.5-15.5) % Plt Count (150-450) k/uL MPV Neutrophils % % Lymphocytes % % Monocytes % % Eosinophils % % Basophils % % Neutrophils # (1.3-7.7) k/uL Lymphocytes # (1.0-4.8) k/uL Monocytes # (0-1.0) k/uL Eosinophils # (0-0.7) k/uL Basophils # (0-0.2) k/uL PT (10.0-12.5) sec INR (<1.2) APTT (22.0-30.0) sec Sodium (137-145) mmol/L Potassium (3.5-5.1) mmol/L Chloride (98-107) mmol/L Carbon Dioxide (22-30) mmol/L Anion Gap mmol/L BUN (7-17) mg/dL Creatinine (0.52-1.04) mg/dL Est GFR (CKD-EPI)AfAm (>60 ml/min/1.73 sqM) Est GFR (CKD-EPI)NonAf (>60 ml/min/1.73 sqM) Glucose (74-99) mg/dL Lactic Ac Sepsis Rflx Y Plasma Lactic Acid Luan 1.8 (0.7-2.0) mmol/L Calcium (8.4-10.2) mg/dL Magnesium (1.6-2.3) mg/dL Total Bilirubin (0.2-1.3) mg/dL AST (14-36) U/L ALT (4-34) U/L Alkaline Phosphatase (38-126) U/L Troponin I (0.000-0.034) ng/mL Total Protein (6.3-8.2) g/dL Albumin (3.5-5.0) g/dL Lipase (23-300) U/L Stool Occult Blood (Negative) Blood Type A Positive Blood Type Recheck A Pos Bld Type Recheck Status No Antibody Screen NEGATIVE Spec Expiration Date 09/20/20242313 Disposition Clinical Impression: Melena, Upper GI hemorrhage Disposition: HOME SELF-CARE Condition: Good Instructions (If sedation given, give patient instructions): Gastrointestinal Bleeding (ED) Prescriptions: Sucralfate [Carafate] 1 gm PO QID #100 tablet Omeprazole [PriLOSEC] 40 mg PO DAILY #21 cap Is patient prescribed a controlled substance at d/c from ED?: No Referrals: Graham Mccullough MD [Primary Care Provider] - 1-2 days Time of Disposition: 15:24
[2024-09-17 11:27] LABS: Basophils % (A) 0 %; Eosinophils # (A) 0.1 k/uL (0-0.7); Eosinophils % (A) 1 %; HCT 41.1 % (34.0-46.0); HGB 13.3 gm/dL (11.4-16.0); Lymphocytes # (A) 1.1 k/uL (1.0-4.8); Lymphocytes % (A) 7 %; MCH 30.9 pg (25.0-35.0); MCHC 32.4 g/dL (31.0-37.0); MCV 95.4 fL (80.0-100.0); Monocytes # (A) 0.4 k/uL (0-1.0); Monocytes % (A) 3 %; Neutrophils # (A) 14.6 k/uL (1.3-7.7); Neutrophils % (A) 90 %; Platelet Count 268 k/uL (150-450); RBC 4.31 m/uL (3.80-5.40); RDW 13.5 % (11.5-15.5); WBC 16.2 k/uL (3.8-10.6)
[2024-09-17] MEDS: SODIUM CHLORIDE 0.9% 1,000 ML IV STA (11:27)
[2024-09-17 11:40] LABS: ALT 14 U/L (4-34); AST 16 U/L (14-36); African American GFR (CKD) 60 (>60 ml/min/1.73 sqM); Albumin 3.8 g/dL (3.5-5.0); Alkaline Phosphatase 102 U/L (38-126); Anion Gap 11 mmol/L; Blood Urea Nitrogen 52 mg/dL (7-17); Calcium 8.7 mg/dL (8.4-10.2); Carbon Dioxide 18 mmol/L (22-30); Chloride 108 mmol/L (98-107); Glucose 130 mg/dL (74-99); Lipase 58 U/L (23-300); Magnesium 1.9 mg/dL (1.6-2.3); Non-African American GFR(CKD) 52 (>60 ml/min/1.73 sqM); Potassium 4.7 mmol/L (3.5-5.1); Sodium 137 mmol/L (137-145); Total Bilirubin 0.5 mg/dL (0.2-1.3); Total Protein 6.4 g/dL (6.3-8.2)
[2024-09-17 11:51] LABS: INR 0.9 (<1.2); Prothrombin Time 9.7 sec (10.0-12.5)
--- NOTE | 2024-09-17 12:20 | CT ---
EXAMINATION TYPE: CT abdomen pelvis w con CT DLP: 1956 mGycm, Automated exposure control for dose reduction was used. DATE OF EXAM: 09/17/2024 12:10 PM COMPARISON: CT abdomen 12/28/2022 CLINICAL INDICATION:Female, 79 years old with history of Melena; Melena TECHNIQUE: Standard CT of the abdomen and pelvis following the administration of 100 cc of Isovue 3 00 IV contrast material. Coronal and sagittal reformats were performed. FINDINGS: LOWER CHEST: Visualized lung bases are clear. Trace pericardial effusion. ABDOMEN LIVER: Unremarkable GALLBLADDER AND BILE DUCTS: The gallbladder is surgically absent. No biliary ductal dilatation. PANCREAS: Unremarkable. SPLEEN: Unremarkable. ADRENAL GLANDS: Unremarkable. KIDNEYS AND URETERS: No evidence of hydronephrosis or renal calculus. The kidneys enhance symmetrical ly. Left renal sinus cysts redemonstrated. Contrast is demonstrated within both collecting systems on delayed phase. Subcentimeter left renal superior pole cyst. PELVIS BLADDER: Unremarkable REPRODUCTIVE: Anteverted uterus with small subserosal calcified fibroid. ABDOMEN & PELVIS STOMACH AND BOWEL: No hyperdensity within the bowel identified. Large periampullary duodenal divertic ulum.Additional smaller diverticula involving the third/fourth portion of the duodenum. Pancolonic di verticulosis without evidence for acute diverticulitis. The appendix is within normal limits. No evid ence of bowel obstruction. PERITONEUM: No evidence of pneumoperitoneum or free fluid. VASCULATURE: Moderate atherosclerotic calcifications are present throughout the abdominal aorta and i ts branches. No evidence of aortic aneurysm. MUSCULOSKELETAL: No acute osseous abnormalities. Dextrocurvature of the lumbar spine. Moderate multil evel degenerative disc disease. Severe multilevel lower lumbar spine facet arthropathy. DISH of the l ower thoracic spine. Moderate to severe right osteoarthritic changes of the right hip. Mild to modera te left osteoarthritic changes of the left hip. LYMPH NODES: No evidence for lymphadenopathy. SOFT TISSUE/ABDOMINAL WALL: Unremarkable IMPRESSION: 1. No acute abdominal/pelvic process. 2. Colonic diverticulosis without evidence for acute diverticulitis. 3. Duodenal diverticula are redemonstrated. [facility], , 09/17/2024 12:18 PM
[2024-09-17 15:13] VITALS: BP 109/56; PULSE 102; RESP 18
== END 2024-09-17 15:20 | disposition home or self-care (01) ==
LOC: EC 10:36
DX: K92.1 Melena (principal); K57.31 Diverticulosis of large intestine without perforation or abscess with bleeding; K21.9 Gastro-esophageal reflux disease without esophagitis; Z87.891 Personal history of nicotine dependence
CPT/HCPCS: 36415; 93005; 86900; 86901; 80053; 83605; 83690; 83735; 84484; 85025; 85610; 85730; 86850; 82272; 74177; 99285; 96360; Q9967